=== PATIENT | female | born 1930 | race Caucasian/White ===

== ENCOUNTER 2017-08-14 12:47 | Emergency (ER) | payer MEDICARE, BC ==
--- NOTE | 2017-08-14 13:03 | EDM.PDOC ---
ED HPI GENERAL MEDICAL PROBLEM - General Chief Complaint: General Stated Complaint: STROKE Time Seen by Provider: 08/14/17 12:59 Source of Information: Reports: Patient, EMS, EMS Notes Reviewed, Old Records History Limitations: Reports: No Limitations - History of Present Illness INITIAL COMMENTS - FREE TEXT/NARRATIVE: Pt was visiting with a friend when developed slurred speech and right sided weakness. Friend dialed 911 and EMS responded. Most symptoms resolved in the ambulance but EMS did report right hand drift on stroke scale exam. Pt did stand for them to transfer without difficulty. Stoke protocol initiated upon arrival to ER. Vitals stable. Pt up to commode with 2 assist prior to going to Xray without much difficulty. Speech clear at that time. Pt to CT at 1300. EMS notes reviewed. Med list reviewed. Pt with admission in 2014 with similar symptoms and worked up with CT and MRI as well as echocardiogram. Notes reviewed. Was found to have vascular disease and UTI. Was treated and discharged on aspirin 81mg and her hypertension meds. Onset: Sudden Onset Date: 08/14/17 Onset Time: 11:30 Duration: Improving Location: Reports: Face, Upper Extremity, Right Severity: Moderate Improves with: Reports: None Worsens with: Reports: None Associated Symptoms: Reports: No Other Symptoms Treatments GREASE MAKER HEAD: Reports: See EMS Report - Related Data Allergies Allergy/AdvReac Type Severity Reaction Status Date / Time No Known Allergies Allergy Verified 08/14/17 13:04 Home Meds: Home Meds RX: Atenolol [Tenormin] 100 mg PO DAILY 08/15/13 [History] RX: Aspirin [Amie Chewable Aspirin] 81 mg PO DAILY #100 tab.chew 11/26/14 [Rx] Multivitamin [Multi-Day Vitamins] 1 tab PO DAILY 01/04/16 [History] Cholecalciferol (Vitamin D3) [Vitamin D3] 1,000 unit PO BEDTIME 08/14/17 [ History] Fish Oil/DHA/EPA [Fish Oil 1,200 MG] 1 cap PO DAILY 08/14/17 [History] Magnesium Oxide [Magnesium] 400 mg PO BEDTIME 08/14/17 [History] Mirtazapine [Mirtazapine] 30 mg PO BEDTIME 08/14/17 [History] RX: Furosemide 20 mg PO DAILY 08/14/17 [History] RX: Melatonin 3 mg PO BEDTIME 08/14/17 [History] amLODIPine Besylate [Amlodipine Besylate] 5 mg PO DAILY 08/14/17 [History] Past Medical History - Past Health History Medical/Surgical History: Denies Medical/Surgical History Cardiovascular History: Reports: Hypertension Neurological History: Reports: TIA Other Neuro History: mild dementia Psychiatric History: Reports: Dementia, Other (See Below) Other Psychiatric History: mild dementia - Infectious Disease History Infectious Disease History: Reports: Chicken Pox, Measles, Mumps - Past Surgical History HEENT Surgical History: Reports: Cataract Surgery Social & Family History - Tobacco Use Smoking Status *Q: Never Smoker Second Hand Smoke Exposure: No - Caffeine Use Caffeine Use: Reports: Coffee - Alcohol Use Days Per Week of Alcohol Use: 0 - Recreational Drug Use Recreational Drug Use: No ED ROS GENERAL - Review of Systems Review Of Systems: See Below Constitutional: Reports: Weakness (right sided, resolved during transport) HEENT: Reports: No Symptoms, Glasses Respiratory: Reports: No Symptoms Cardiovascular: Reports: No Symptoms Endocrine: Reports: No Symptoms GI/Abdominal: Reports: No Symptoms : Reports: No Symptoms Musculoskeletal: Reports: No Symptoms Skin: Reports: No Symptoms Neurological: Reports: Pre-Existing Deficit (mild dementia noted in her record) , Trouble Speaking (witnessed by a friend), Weakness (right sided weakness prior to arrival) Psychiatric: Reports: Confusion (very mild) Hematologic/Lymphatic: Reports: No Symptoms Immunologic: Reports: No Symptoms ED EXAM, GENERAL - Physical Exam Exam: See Below Exam Limited By: Altered Mental Status (mild. Pt alert to her age and location. Not sure of day of the week or year. Answers other questions appropriately. Follows commands.) General Appearance: Alert, WD/WN, No Apparent Distress Eye Exam: Bilateral Eye: EOMI, Normal Fundi, Normal Inspection, PERRL Ears: Normal External Exam, Normal Canal, Hearing Grossly Normal, Normal TMs Ear Exam: Bilateral Ear: Auricle Normal, Canal Normal, TM normal Nose: Normal Inspection, Normal Mucosa, No Blood Throat/Mouth: Normal Inspection, Normal Lips, Normal Teeth, Normal Gums, Normal Oropharynx, Normal Voice, No Airway Compromise Head: Atraumatic, Normocephalic Neck: Normal Inspection, Supple, Non-Tender, Full Range of Motion Respiratory/Chest: No Respiratory Distress, Lungs Clear, Normal Breath Sounds, No Accessory Muscle Use, Chest Non-Tender Cardiovascular: Normal Peripheral Pulses, Regular Rate, Rhythm, No Edema, No Gallop, No JVD, No Murmur, No Rub GI/Abdominal: Normal Bowel Sounds, Soft, Non-Tender, No Organomegaly, No Distention, No Abnormal Bruit, No Mass Extremities: Normal Inspection (strength intact and symmetrical), Normal Range of Motion, Non-Tender, Normal Capillary Refill, No Pedal Edema Neurological: Alert, Oriented, CN II-XII Intact, Normal Cognition, Normal Gait ( pivots to the toilet without difficulty), Normal Reflexes, No Motor/Sensory Deficits, Memory Loss Recent Events (per her baseline) Psychiatric: Normal Affect, Normal Mood Skin Exam: Warm, Dry, Intact, Normal Color, No Rash Lymphatic: No Adenopathy Course - Vital Signs Last Recorded V/S: Last Vital Signs Temp 97.6 F 08/14/17 13:09 Pulse 65 08/14/17 12:56 Resp 16 08/14/17 14:08 BP 165/72 H 08/14/17 14:08 Pulse Ox 98 08/14/17 14:08 - Orders/Labs/Meds Orders: Active Orders 24 hr Category Date Time Status Head wo Cont [CT] Stat Exams 08/14/17 12:49 Taken CULTURE URINE [RM] Stat Lab 08/14/17 13:25 Received cefTRIAXone [Rocephin] 1 gm Med 08/14/17 13:47 Active Sodium Chloride 0.9% [Normal Saline] 50 ml IV ONETIME Medication Orders Ceftriaxone Sodium 1 gm/ (Sodium Chloride) 50 mls @ 100 mls/hr IV ONETIME ONE Stop: 08/14/17 14:16 Last Admin: 08/14/17 13:59 Dose: 100 mls/hr Labs: Laboratory Tests 08/14/17 08/14/17 08/14/17 Range/Units 12:48 13:08 13:08 WBC 5.0 (4.5-11.0) K/uL RBC 3.85 (3.30-5.50) M/uL Hgb 11.4 L (12.0-15.0) g/dL Hct 35.1 L (36.0-48.0) % MCV 91 (80-98) fL MCH 30 (27-31) pg MCHC 33 (32-36) % Plt Count 299 (150-400) K/uL Neut % (Auto) 49 (36-66) % Lymph % (Auto) 34 (24-44) % Morrow % (Auto) 11 H (2-6) % Eos % (Auto) 5 H (2-4) % Baso % (Auto) 0 (0-1) % PT 10.6 (9.5-12.0) sec INR 0.99 (0.80-1.20) Sodium (140-148) mmol/L Potassium (3.6-5.2) mmol/L Chloride (100-108) mmol/L Carbon Dioxide (21-32) mmol/L Anion Gap (5.0-14.0) mmol/L BUN (7-18) mg/dL Creatinine (0.6-1.0) mg/dL Est Cr Clr Drug Dosing mL/min Estimated GFR (MDRD) (>60) Glucose (74-106) mg/dL Calcium (8.5-10.1) mg/dL Total Bilirubin (0.2-1.0) mg/dL AST (15-37) U/L ALT (12-78) U/L Alkaline Phosphatase (46-116) U/L Total Protein (6.4-8.2) g/dL Albumin (3.4-5.0) g/dL Globulin (2.3-3.5) g/dL Albumin/Globulin Ratio (1.2-2.2) TSH, Ultra Sensitive (0.358-3.740) uIU/mL Urine Color Yellow Urine Appearance Clear Urine pH 7.0 (4.5-8.0) Ur Specific [place] 1.005 L (1.008-1.030) Urine Protein Negative (NEGATIVE) mg/dL Urine Glucose (UA) Normal (NEGATIVE) mg/dL Urine Ketones Negative (NEGATIVE) mg/dL Urine Occult Blood Negative (NEGATIVE) Urine Nitrite Negative (NEGATIVE) Urine Bilirubin Negative (NEGATIVE) Urine Urobilinogen Normal (NORMAL) mg/dL Ur Leukocyte Esterase Small (NEGATIVE) Urine RBC Not seen (0-5) Urine WBC 0-5 (0-5) Ur Epithelial Cells Not seen Amorphous Sediment Not seen Urine Bacteria Moderate Urine Mucus Not seen 08/14/17 08/14/17 Range/Units 13:08 13:08 WBC (4.5-11.0) K/uL RBC (3.30-5.50) M/uL Hgb (12.0-15.0) g/dL Hct (36.0-48.0) % MCV (80-98) fL MCH (27-31) pg MCHC (32-36) % Plt Count (150-400) K/uL Neut % (Auto) (36-66) % Lymph % (Auto) (24-44) % Morrow % (Auto) (2-6) % Eos % (Auto) (2-4) % Baso % (Auto) (0-1) % PT (9.5-12.0) sec INR (0.80-1.20) Sodium 139 L (140-148) mmol/L Potassium 3.7 (3.6-5.2) mmol/L Chloride 102 (100-108) mmol/L Carbon Dioxide 28 (21-32) mmol/L Anion Gap 12.7 (5.0-14.0) mmol/L BUN 21 H (7-18) mg/dL Creatinine 1.0 (0.6-1.0) mg/dL Est Cr Clr Drug Dosing 35.52 mL/min Estimated GFR (MDRD) 53 L (>60) Glucose 105 (74-106) mg/dL Calcium 8.7 (8.5-10.1) mg/dL Total Bilirubin 0.3 (0.2-1.0) mg/dL AST 20 (15-37) U/L ALT 22 (12-78) U/L Alkaline Phosphatase 110 (46-116) U/L Total Protein 7.2 (6.4-8.2) g/dL Albumin 3.3 L (3.4-5.0) g/dL Globulin 3.9 H (2.3-3.5) g/dL Albumin/Globulin Ratio 0.9 L (1.2-2.2) TSH, Ultra Sensitive 4.015 H (0.358-3.740) uIU/mL Urine Color Urine Appearance Urine pH (4.5-8.0) Ur Specific [place] (1.008-1.030) Urine Protein (NEGATIVE) mg/dL Urine Glucose (UA) (NEGATIVE) mg/dL Urine Ketones (NEGATIVE) mg/dL Urine Occult Blood (NEGATIVE) Urine Nitrite (NEGATIVE) Urine Bilirubin (NEGATIVE) Urine Urobilinogen (NORMAL) mg/dL Ur Leukocyte Esterase (NEGATIVE) Urine RBC (0-5) Urine WBC (0-5) Ur Epithelial Cells Amorphous Sediment Urine Bacteria Urine Mucus Meds: Medications Generic Name Dose Route Start Last Admin Trade Name Eva PRN Reason Stop Dose Admin Ceftriaxone Sodium 1 gm/ 50 mls @ 100 mls/hr 08/14/17 13:47 08/14/17 13:59 Sodium Chloride IV 08/14/17 14:16 100 mls/hr ONETIME ONE Administration Departure - Departure Time of Disposition: 14:24 Disposition: DC/Tfer to Detention [facility] 64 Condition: Good Clinical Impression: TIA (transient ischemic attack) Qualifiers: Transient cerebral ischemia type: unspecified Qualified Code(s): G45.9 - Transient cerebral ischemic attack, unspecified UTI (urinary tract infection) Qualifiers: Urinary tract infection type: acute cystitis Hematuria presence: without hematuria Qualified Code(s): N30.00 - Acute cystitis without hematuria - Discharge Information Instructions: Urinary Tract Infection, Adult, Transient Ischemic Attack, Easy- to-Read Referrals: PCP,None [Primary Care Provider] - Forms: ED Department Discharge Additional Instructions: Head CT without contrast with stable age related changes. No acute processes noted. Labs show mild anemia, stable. CMP stable. INR normal. UA with leukocytes and bacteria. Culture pending. Rocephin 1gm IV given. Pt eats entire tray of lunch without difficulty. Discussed case with pt's daughter who arrives. Called to consult with Dr Linton. At this time as pt is stable, will d/c her back to [facility]. Will increase her aspirin to 325mg po daily for stroke prevention. Pt to start Cephalexin 500mg TID x 6 days tomorrow for UTI. Is to followup with primary care this week to recheck blood pressure and UA. Pt and daughter agreeable to plan of care. Will followup sooner if stroke symptoms return or persist. - My Orders Last 24 Hours: My Active Orders 08/14/17 12:49 Head wo Cont [CT] Stat 08/14/17 13:25 CULTURE URINE [RM] Stat 08/14/17 13:47 cefTRIAXone [Rocephin] 1 gm Sodium Chloride 0.9% [Normal Saline] 50 ml IV ONETIME - Assessment/Plan Last 24 Hours: My Active Orders 08/14/17 12:49 Head wo Cont [CT] Stat 08/14/17 13:25 CULTURE URINE [RM] Stat 08/14/17 13:47 cefTRIAXone [Rocephin] 1 gm Sodium Chloride 0.9% [Normal Saline] 50 ml IV ONETIME
[2017-08-14] MEDS ORDERED: cefTRIAXone 1 GM in Sodium Chloride 0.9% 50 ML IV ONE (13:47)
[2017-08-14 14:08] VITALS: BP 165/72
== END 2017-08-14 14:57 ==
LOC: JP.ED 12:47
DX: G45.9 Transient cerebral ischemic attack, unspecified (principal); N30.00 Acute cystitis without hematuria; I10 Essential (primary) hypertension; F03.90 Unspecified dementia, unspecified severity, without behavioral disturbance, psychotic disturbance, mood disturbance, and anxiety; Z79.82 Long term (current) use of aspirin; Z79.899 Other long term (current) drug therapy
CPT/HCPCS: 36415; 70450; 80053; 81001; 84443; 85025; 85610; 87086; 87088; 87186; 96365; 99285; J0696; J7050